=== PATIENT | male | born 1955 | race Caucasian/White ===

== ENCOUNTER 2018-07-17 08:25 | Emergency (ER) | payer OTHER ==
[2018-07-17] MEDS ORDERED: Triamcinolone Acetonide* 40 MG/ML 1 ML VIAL INTRAARTIC ONE (08:46)
[2018-07-17] MEDS ORDERED: Bupivacaine 0.5% W/EPI SDV* 30 ML VIAL INJ ONE (08:46)
--- NOTE | 2018-07-17 08:56 | ED ---
Lower Extremity - HPI Summary HPI Summary: This patient is a 62 year old male presenting to [facility] with a chief complaint of right knee pain and swelling since yesterday night. Patient states that the pain started 2 days ago, but he paid it no mind because there was no swelling and the pain was not unbearable. Yesterday evening, patient noticed that the knee was beginning to swell. The pain is rated 6/10 in severity. Symptoms aggravated by nothing. Symptoms alleviated by nothing The patient treated the sx with ibuprofen at 0400 today. Patient denies a hx of gout. Patient denies fevers - History of Current Complaint Chief Complaint: EDExtremityLower Stated Complaint: RIGHT KNEE PAIN Time Seen by Provider: 07/17/18 08:32 Hx Obtained From: Patient Mechanism Of Injury: Unknown Onset of Pain: Hours Onset/Duration: Days Severity Initially: Mild Severity Currently: Moderate Pain Intensity: 6 Pain Scale Used: 0-10 Numeric Timing: Constant Location: Is Discrete @ - right knee Associated Signs And Symptoms: Negative: Fever Aggravating Factor(s): Nothing Alleviating Factor(s): Nothing Able to Bear Weight: Yes - Allergies/Home Medications Allergies/Adverse Reactions: Allergies Allergy/AdvReac Type Severity Reaction Status Date / Time No Known Allergies Allergy Verified 07/17/18 08:34 PMH/Surg Hx/FS Hx/Imm Hx Previously Healthy: Yes Opthamlomology History: Denies: Hx Legally Blind EENT History: Denies: Hx Deafness Infectious Disease History: No Infectious Disease History: Denies: Traveled Outside the [place] in Last 30 Days - Family History Known Family History: Negative: Hypertension, Diabetes - Social History Lives: Alone Alcohol Use: None Hx Substance Use: No Substance Use Type: Reports: None Review of Systems Negative: Fever Positive: Edema, Other - right knee pain All Other Systems Reviewed And Are Negative: Yes Physical Exam - Summary Physical Exam Summary: Appearance: Well appearing, no pain distress Skin: warm, dry, reflects adequate perfusion Head/face: normal Eyes: EOMI, SOCO ENT: mucous membranes moist Neck: supple, non-tender Respiratory: CTA, breath sounds present Cardiovascular: RRR, pulses symmetrical Abdomen: non-tender, soft Bowel Sounds: present Musculoskeletal: normal, strength/ROM intact, swelling present on right knee, no warmth or hotness Neuro: normal, sensory motor intact, A&Ox3 Triage Information Reviewed: Yes Vital Signs On Initial Exam: Initial Vitals Temp Pulse Resp BP Pulse Ox 97 F 71 14 177/100 98 07/17/18 08:35 07/17/18 08:35 07/17/18 08:35 07/17/18 08:35 07/17/18 08:35 Vital Signs Reviewed: Yes Procedures - Procedure Summary Procedure Summary: Arthrocentesis: Performed for large joint effusion right knee. Time out was performed. The knee was cleansed with chlorhexidine scrubs. A single-point in the lateral joint line was anesthetized with 1 cc of 0.5% bupivacaine with epinephrine. 18-gauge needle was used to aspirate 75 cc of blood-tinged debi colored synovial fluid. Following the tap, the joint was infused with 40 mg of Kenalog and 1 cc of 0.5% bupivacaine with epinephrine. The patient tolerated this well without complication. This site was dressed with a Band-Aid and the knee was wrapped with Julio wrap. Diagnostics - Vital Signs Vital Signs Temp Pulse Resp BP Pulse Ox 07/17/18 08:35 97 F 71 14 177/100 98 - Laboratory Lab Statement: Any lab studies that have been ordered have been reviewed, and results considered in the medical decision making process. Lower Extremity Course/Dx - Course Course Of Treatment: No organisms seen on synovial fluid. Resulted and 75 cc out with significant pain relief. He will be referred to orthopedics and placed on Mobic. No evidence for septic joint. Well-appearing patient without redness, warmth or fever. - Diagnoses Differential Diagnosis/HQI/PQRI: Positive: Other - Gout, pseudogout, osteoarthritis, other inflammatory arthritis Provider Diagnoses: Knee effusion, right, Osteoarthritis of right knee Discharge - Sign-Out/Discharge Documenting (check all that apply): Patient Departure - Discharge Plan Condition: Improved Disposition: HOME Prescriptions: Meloxicam [Mobic] 7.5 mg PO DAILY #30 tablet Patient Education Materials: Osteoarthritis (ED), Swollen Knee Joint (ED) Referrals: Regan Loredo MD [Medical Doctor] - Donato Lama MD [Medical Doctor] - Additional Instructions: Ice, Julio wrap, limit motion as needed for comfort. Return with fever, worsened effusion, redness of the worse or other concerns. - Billing Disposition and Condition Condition: IMPROVED Disposition: Home - Attestation Statements Document Initiated by Scribe: Yes Documenting Scribe: Alex Spears Provider For Whom Scribe is Documenting (Include Credential): Tr Desouza MD Scribe Attestation: I, Alex Spears, scribed for Tr Desouza MD on 07/17/18 at 1005. Scribe Documentation Reviewed: Yes Provider Attestation: The documentation as recorded by the Alex lu accurately reflects the service I personally performed and the decisions made by me, Tr Desouza MD Status of Scribe Document: Viewed
[2018-07-17 09:54] VITALS: BP 178/96
[2018-07-20 23:49] LABS: Lyme Disease Source SYNOPVIAL FLUID
== END 2018-07-17 09:52 | disposition home or self-care (01) ==
LOC: ED 08:25
DX: M25.461 Effusion, right knee (principal); M17.11 Unilateral primary osteoarthritis, right knee; M25.561 Pain in right knee; R60.0 Localized edema
CPT/HCPCS: 36415; 82945; 84157; 87070; 87205; 87476; 87640; 87641; 87798; 89051; 89060; 96374; 99282; J3301